=== PATIENT | female | born 1970 | race Caucasian/White ===

== ENCOUNTER 2019-12-21 10:08 | Outpatient (CLI) | payer BC, SELFPAY ==
--- NOTE | ~2019-12-21 | MM_ITS ---
EXAMINATION: MM screening [facility] BI w [place]by HISTORY: Screening mammogram TECHNIQUE: Craniocaudal and mediolateral oblique 3-D tomosynthesis images were obtained and synthetic 2-D images were generated. CAD analysis was submitted and interpreted. COMPARISON: 11/25/2018, 06/26/2017, 01/29/2016 BREAST PARENCHYMAL COMPOSITION: There are scattered areas of fibroglandular density. FINDINGS: There is no evidence of suspicious mass, calcification, or architectural distortion to sugg est malignancy in either breast. There has been no suspicious interval change. IMPRESSION: 1. No mammographic evidence of malignancy. 2. Recommend routine screening mammography in one year. BI-RADS Category 1: Negative Reviewed, dictated and finalized at location A.
== END 2019-12-21 10:09 | disposition home or self-care (01) ==
LOC: ANHIMG 10:11
PROVIDERS: PCP Internal Medicine; Visit Provider Obstetrics & Gynecology
DX: Z12.31 Encounter for screening mammogram for malignant neoplasm of breast (principal)
CPT/HCPCS: 77063; 77067

== ENCOUNTER → 2020-07-12 12:22 | Outpatient (CLI) | payer BC, SELFPAY ==
--- NOTE | ~2020-07-12 | MR_ITS ---
EXAMINATION: MR knee LT wo con DATE: 07/12/2020 13:09 INDICATION: Left knee pain TECHNIQUE: Magnetic resonance imaging (MRI) of the left knee was performed without intravenous contra st. Sequences included coronal PD-weighted FSE, coronal PD-weighted FS FSE, sagittal T2-weighted FSE , sagittal PD-weighted FS FSE and axial PD weighted fat saturated FSE. COMPARISON: None. FINDINGS: Medial compartment: Medial meniscus is normal. Articular cartilage is normal. Lateral compartment: Longitudinal horizontal tear extending to the superior articular surface in the peripheral third of t he body of the lateral meniscus. There is an additional longitudinal horizontal tear to contact the i nferior articular surface at the inner third of the posterior horn of the lateral meniscus. No defini tive communication between the 2 tear planes. No significant interval change in deep chondral fissuri ng at the central to posterior aspect of the lateral tibial plateau. Also unchanged is a partial-thic kness cartilage loss with smooth chondral surface along the posterior weightbearing lateral femoral c ondyle. Patellofemoral compartment: No significant interval change in deep chondral ulceration at the patellar apical ridge with deep cho ndral fissuring extending into the medial and lateral patellar facets. Small foci of subarticular henry ma at the apical ridge and lateral facet. Partial-thickness chondral ulceration and deep fissuring wi th mild underlying cortical irregularity and cystic change at the inferior aspect of the medial troch marifer. Partial thickness chondral ulceration without degenerative subchondral changes at the trochlear groove and immediately adjacent inferomedial aspect of the lateral trochlea. Ligaments and tendons: Posterior cruciate ligament is normal. There is an intrasubstance ganglion cyst extending along the p osterior fibers of the otherwise intact appearing anterior cruciate ligament. The medial collateral l igament and fibular collateral ligament complex are normal. The extensor mechanism is normal. The vis ualized medial and lateral hamstring tendons as well as the iliotibial band are normal. Fluid: Physiologic amount of fluid in the joint space. No loose osteochondral bodies identified. Small to mo derate sized Will's cyst. Osseous/other: Patchy red marrow reexpansion in the metaphyseal and diaphyseal regions of the distal femur and proxi mal tibia and fibula. New increased marrow signal at the intercondylar eminence underlying the footpl ate of the anterior cruciate ligament and root of the posterior horn of the lateral meniscus. No frac ture or pathologic marrow replacing process. IMPRESSION: 1. Lateral meniscal tear. 2. 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 3. Intrasubstance ganglion cyst extending along the posterior fibers of the otherwise intact appearin g anterior cruciate ligament. No definitive tear of the anterior cruciate ligament but would correlat e with physical exam to assess for functional integrity. 4. Small to moderate-sized Will's cyst. Reviewed, dictated and finalized at location A. IMPRESSION: 1. Lateral meniscal tear. 2. No significant interval change in mild osteoarthritis with regions of modera te and high-grade chondromalacia in the patellofemoral compartment and to a les ser degree lateral compartment. 3. Intrasubstance ganglion cyst extending along the posterior fibers of the oth erwise intact appearing anterior cruciate ligament. No definitive tear of the a nterior cruciate ligament but would correlate with physical exam to assess for functional integrity. 4. S
== END ==
PROVIDERS: PCP Internal Medicine; Visit Provider Anesthesiology
DX: M71.22 Synovial cyst of popliteal space [Baker], left knee (principal); S83.282A Other tear of lateral meniscus, current injury, left knee, initial encounter; X58.XXXA Exposure to other specified factors, initial encounter
CPT/HCPCS: 73721

== ENCOUNTER 2020-12-27 17:42 | Outpatient (CLI) | payer BC, SELFPAY ==
--- NOTE | ~2020-12-27 | MM_ITS ---
EXAMINATION: MM screening [facility] BI w [place] HISTORY: Screening TECHNIQUE: Craniocaudal and mediolateral oblique 3-D tomosynthesis images were obtained and synthetic 2-D images were generated. CAD analysis was submitted and interpreted. COMPARISON: Comparison to multiple prior studies sequentially, with oldest reviewed study dated 06/27. BREAST PARENCHYMAL COMPOSITION: There are scattered areas of fibroglandular density. FINDINGS: There is no evidence of suspicious mass, calcification, or architectural distortion to sugg est malignancy in either breast. There has been no suspicious interval change. IMPRESSION: 1. No mammographic evidence of malignancy. 2. Recommend routine screening mammography in one year. BI-RADS Category 1: Negative Reviewed, dictated and finalized at location A.
== END 2020-12-27 17:43 | disposition home or self-care (01) ==
LOC: ANHIMG 17:44
PROVIDERS: PCP Internal Medicine; Visit Provider Obstetrics & Gynecology
DX: Z12.31 Encounter for screening mammogram for malignant neoplasm of breast (principal)
CPT/HCPCS: 77063; 77067

== ENCOUNTER 2021-05-22 09:40 | Outpatient (CLI) | payer BC, SELFPAY ==
--- NOTE | 2021-05-22 11:00 | NEURO_ITS ---
Impression: # Complains of hand numbness. # Bilateral moderate Carpal Tunnel Syndrome. 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 # Abnormal needle/EMG exam. Nerve Conduction Studies Anti Sensory Summary Table Stim Site NR Peak (ms) P-T Amp (?V) Site1 Site2 Delta-P (ms) Dist (cm) Lloyd (m/s) Left Median Anti Sensory (2-3nd Digit) Wrist 4.1 54.2 Wrist 2-3nd Digit 4.1 14.0 34 Wrist 4.1 40.9 Wrist 2-3nd Digit 4.1 14.0 34 Right Median Anti Sensory (2-3nd Digit) Wrist 5.2 21.6 Wrist 2-3nd Digit 5.2 14.0 27 Wrist 4.9 14.6 Wrist 2-3nd Digit 5.2 14.0 27 Left Radial Anti Sensory (Base 1st Digit) Wrist 2.1 28.3 Wrist Base 1st Digit 2.1 0.0 Right Radial Anti Sensory (Base 1st Digit) Wrist 2.1 13.1 Wrist Base 1st Digit 2.1 0.0 Left Ulnar Anti Sensory (5th Digit) Wrist 2.7 35.9 Wrist 5th Digit 2.7 14.0 52 Right Ulnar Anti Sensory (5th Digit) Wrist 2.6 75.6 Wrist 5th Digit 2.6 14.0 54 Motor Summary Table Stim Site NR Onset (ms) O-P Amp (mV) Site1 Site2 Delta-0 (ms) Dist (cm) Lloyd (m/s) Left Median Motor (Abd Poll Brev) Wrist 4.8 3.2 Elbow Wrist 4.9 29.0 59 Elbow 9.7 3.3 Right Median Motor (Abd Poll Brev) Wrist 4.8 3.1 Elbow Wrist 4.8 27.0 56 Elbow 9.6 2.9 Left Ulnar Motor (Abd Dig Minimi) Wrist 2.5 6.6 A Elbow Wrist 5.2 31.0 60 A Elbow 7.7 5.0 Right Ulnar Motor (Abd Dig Minimi) Wrist 2.8 5.0 A Elbow Wrist 5.3 29.0 55 A Elbow 8.1 3.6 F Wave Studies NR F-Lat (ms) L-R F-Lat (ms) Left Median (Mrkrs) (Abd Poll Brev) 28.54 3.80 Right Median (Mrkrs) (Abd Poll Brev) 32.34 3.80 Left Ulnar (Mrkrs) (Abd Dig Min) 28.24 2.81 Right Ulnar (Mrkrs) (Abd Dig Min) 31.05 2.81 EMG Side Muscle Nerve Root Ins Act Fibs Amp Dur Recrt Comment Right 1stDorInt Ulnar C8-T1 Nml Nml Nml Nml Nml Right Ext Indicis Radial (Post Int) C7-8 Nml Nml Nml Nml Nml Right Ext Digitorum Radial (Post Int) C7-8 Nml Nml Nml Nml Nml Right BrachioRad Radial C5-6 Nml Nml Nml Nml Nml Right PronatorTeres Median C6-7 Nml Nml Nml Nml Nml Right Abd Poll Brev Median C8-T1 Nml Nml Nml >12ms Reduced Left 1stDorInt Ulnar C8-T1 Nml Nml Nml Nml Nml Left Ext Indicis Radial (Post Int) C7-8 Nml Nml Nml Nml Nml Left Ext Digitorum Radial (Post Int) C7-8 Nml Nml Nml Nml Nml Left BrachioRad Radial C5-6 Nml Nml Nml Nml Nml Left PronatorTeres Median C6-7 Nml Nml Nml Nml Nml Left Abd Poll Brev Median C8-T1 Nml Nml Nml >12ms Reduced Right ABD Dig Min Ulnar C8-T1 Nml Nml Nml Nml Nml Left ABD Dig Min Ulnar C8-T1 Nml Nml Nml Nml Nml MTDD
== END 2021-05-22 09:41 | disposition home or self-care (01) ==
LOC: ANHNEURO 09:42
PROVIDERS: PCP Internal Medicine; Visit Provider Internal Medicine
DX: R20.0 Anesthesia of skin (principal); G56.03 Carpal tunnel syndrome, bilateral upper limbs; G56.21 Lesion of ulnar nerve, right upper limb; R94.131 Abnormal electromyogram [EMG]
CPT/HCPCS: 95886; 95911

== ENCOUNTER 2022-01-02 17:35 | Outpatient (CLI) | payer BC, SELFPAY ==
--- NOTE | ~2022-01-02 | MM_ITS ---
EXAMINATION: MM screening [facility] BI w toby HISTORY: Screening TECHNIQUE: Craniocaudal and mediolateral oblique 3-D tomosynthesis images were obtained and synthetic 2-D images were generated. CAD analysis was submitted and interpreted. COMPARISON: Comparison to multiple prior studies sequentially, with oldest reviewed study dated 01/28. BREAST PARENCHYMAL COMPOSITION: There are scattered areas of fibroglandular density. FINDINGS: There is no evidence of suspicious mass, calcification, or architectural distortion to sugg est malignancy in either breast. There has been no suspicious interval change. IMPRESSION: 1. No mammographic evidence of malignancy. 2. Recommend routine screening mammography in one year. BI-RADS Category 1: Negative Reviewed, dictated and finalized at location A.
== END 2022-01-02 17:36 | disposition home or self-care (01) ==
PROVIDERS: PCP Internal Medicine; Visit Provider Obstetrics & Gynecology
DX: Z12.31 Encounter for screening mammogram for malignant neoplasm of breast (principal)
CPT/HCPCS: 77063; 77067

== ENCOUNTER 2023-07-16 16:22 | Outpatient (CLI) | payer BC, SELFPAY ==
--- NOTE | ~2023-07-16 | MM_ITS ---
EXAMINATION: MM screening [facility] BI w toby HISTORY: Screening mammogram TECHNIQUE: Craniocaudal and mediolateral oblique 3-D tomosynthesis images were obtained and synthetic 2-D images were generated. CAD analysis was submitted and interpreted. COMPARISON: 01/02/2022, 12/19/2020, 12/21/2019 BREAST PARENCHYMAL COMPOSITION:The breasts are heterogeneously dense, which may obscure small masses. FINDINGS: No suspicious mass, calcification, or architectural distortion are identified in either alex ast to suggest malignancy. There has been no suspicious interval change. IMPRESSION: No mammographic evidence of malignancy. Recommend routine screening mammography in one year. BI-RADS Category 1: Negative Reviewed, dictated and finalized at location .
== END 2023-07-16 16:23 | disposition home or self-care (01) ==
PROVIDERS: PCP Internal Medicine; Visit Provider Obstetrics & Gynecology
DX: Z12.31 Encounter for screening mammogram for malignant neoplasm of breast (principal)
CPT/HCPCS: 77063; 77067

== ENCOUNTER → 2023-08-06 14:06 | Outpatient (CLI) | payer BC, SELFPAY ==
--- NOTE | ~2023-08-06 | CT_ITS ---
EXAMINATION: CT lung screening DATE: 08/06/2023 14:19 INDICATION: Personal history of nicotine dependence TECHNIQUE: Computed tomography (CT) of the chest was performed without intravenous contrast. The dose -length product was 62.28 mGy-cm. Automated exposure control and iterative reconstruction technique w ere employed. COMPARISON: CT dated 06/03/2019 FINDINGS: Heart size normal. No significant pleural or pericardial effusion. The upper abdomen is unr emarkable. No lymphadenopathy. Mild emphysema. No endobronchial lesions. No pneumothorax. No focal ai rspace consolidation. Calcified granuloma right lower lobe. There are a few small nodules in the uppe r lobes measuring 2 mm or less, likely benign. Mild thoracic spondylosis. No focal lytic or blastic l esions. IMPRESSION: 1. Lung-RADS category 2: Benign appearance or behavior. Continue annual screening with noncontrast lo w-dose chest CT in 12 months. Reviewed, dictated and finalized at location B. IMPRESSION: 1. Lung-RADS category 2: Benign appearance or behavior. Continue annual screeni ng with noncontrast low-dose chest CT in 12 months.
== END ==
PROVIDERS: PCP Internal Medicine; Visit Provider Internal Medicine
DX: Z12.2 Encounter for screening for malignant neoplasm of respiratory organs (principal); F17.210 Nicotine dependence, cigarettes, uncomplicated
CPT/HCPCS: 71271

== ENCOUNTER 2023-10-14 15:32 | Outpatient (CLI) | payer BC, SELFPAY ==
[2023-10-14 17:04] LABS: Influenza A QL RT-PCR Positive (Negative); Influenza B QL RT-PCR Negative (Negative); SARS-CoV-2 RNA PCR Negative (Negative)
== END 2023-10-14 15:33 | disposition home or self-care (01) ==
LOC: ANHLAB 15:33
PROVIDERS: PCP Internal Medicine; Visit Provider Physician Assistant
DX: R68.89 Other general symptoms and signs (principal); Z20.822 Contact with and (suspected) exposure to COVID-19
CPT/HCPCS: 87502; 87635

== ENCOUNTER 2025-04-04 10:12 | Outpatient (CLI) | payer OTHER, BC, SELFPAY ==
--- NOTE | 2025-04-04 | ECG_ITS ---
Test Date: 2025-04-04 11:47:20 Measurements Intervals [place] Rate: 60 P: 2 HI: 134 QRS: 48 QRSD: 82 T: 43 QT: 441 QTc: 442 Interpretive Statements SINUS RHYTHM CANNOT R/O SEPTAL INFARCT, AGE INDETERMINATE ABNORMAL ECG No previous ECG available for comparison Electronically Signed On 04-04-2025 11:58:27 CDT by Delfin Corona D.O.
--- NOTE | ~2025-04-04 | XR_ITS ---
EXAM/PROCEDURE: XR chest 2V - 04/04/2025 11:20 CDT HISTORY: 54 years old Female with coagulation, unspecified TECHNIQUE: Two view(s) of the chest. COMPARISON: None available. FINDINGS: LUNGS/ PLEURA: No focal consolidation. No appreciable pneumothorax or large pleural effusion. HEART/ MEDIASTINUM: Heart appears normal in size. BONES: No acute osseous abnormality. OTHER: Visualized upper abdomen is unremarkable. IMPRESSION: No acute process. Reviewed, dictated and finalized at location A. IMPRESSION: No acute process.
== END 2025-04-04 10:13 | disposition home or self-care (01) ==
PROVIDERS: PCP Family Medicine
DX: Z01.818 Encounter for other preprocedural examination (principal); R94.31 Abnormal electrocardiogram [ECG] [EKG]; S86.812A Strain of other muscle(s) and tendon(s) at lower leg level, left leg, initial encounter; S83.92XA Sprain of unspecified site of left knee, initial encounter; X58.XXXA Exposure to other specified factors, initial encounter; S83.272A Complex tear of lateral meniscus, current injury, left knee, initial encounter; D68.9 Coagulation defect, unspecified
CPT/HCPCS: 71046; 93005

== ENCOUNTER 2025-04-06 17:28 | Outpatient (CLI) | payer OTHER, BC, SELFPAY ==
[2025-04-06 17:57] LABS: Hematocrit 39.8 % (37.0-47.0); Hemoglobin 13.1 g/dL (12.0-15.0); Mean Corpuscular HGB Conc 32.9 g/dl (32-36); Mean Corpuscular Volume 94.3 fl (80-100); Mean Platelet Volume 10.1 fl (7.4-10.4); Platelet Count Result 318 k/mm3 (150-375); Red Blood Count 4.22 M/mm3 (4.2-5.4); Red Cell Distribution Width 12.2 % (11.5-14.5); White Blood Count 9.3 K/mm3 (4.5-10.0)
== END 2025-04-06 17:29 | disposition home or self-care (01) ==
PROVIDERS: PCP Family Medicine
DX: Z01.818 Encounter for other preprocedural examination (principal); S86.812A Strain of other muscle(s) and tendon(s) at lower leg level, left leg, initial encounter; S83.92XA Sprain of unspecified site of left knee, initial encounter; S83.272A Complex tear of lateral meniscus, current injury, left knee, initial encounter; D68.9 Coagulation defect, unspecified
CPT/HCPCS: 36415; 85027